=== PATIENT | male | born 1980 | race African-American/Black ===

== ENCOUNTER 2023-04-29 12:55 | Emergency (ER) | payer BC ==
[~2023-04-29] VITALS: Ht 188 cm; Wt 118.8 kg
[2023-04-29 13:01] VITALS: O2SAT 99
[2023-04-29] MEDS ORDERED: PREDNISONE 20 MG TAB ONE (13:23)
[2023-04-29] MEDS ORDERED: KETOROLAC TROMETHAMINE 30 MG/ML VIAL ONE (13:24)
[2023-04-29] MEDS ORDERED: PREDNISONE 20 MG TAB PO ONE (13:30)
[2023-04-29] MEDS ORDERED: KETOROLAC TROMETHAMINE 30 MG/ML VIAL IM ONE (13:30)
[2023-04-29] MEDS ORDERED: NAPROSYN500 MG PO (13:35)
[2023-04-29] MEDS ORDERED: METHOCARBAMOL500 MG PO (13:35)
== END 2023-04-29 15:28 | disposition home or self-care (01) ==
LOC: FSED 13:00
DX: M54.50 Low back pain, unspecified (principal); M51.86 Other intervertebral disc disorders, lumbar region; Z87.19 Personal history of other diseases of the digestive system
CPT/HCPCS: 72131; 81003; 99283; J1885; J7512